=== PATIENT | female | born 1930 | race Caucasian/White ===

== ENCOUNTER 2016-02-28 14:19 | Emergency (ER) | payer OTHER ==
[~2016-02-28] VITALS: Ht 160 cm; Wt 81.7 kg
--- NOTE | ~2016-02-28 | 24HR ---
[facility] [place] [address] 24 HR ELECTROCARDIOGRAM REPORT Name: FLO MAGANA Room #: [facility] [id number] Admission: 02/28/16 Attend Phys: Discharge: 02/28/16 Date of : 32 Date of Service: 03/04/16 0944 Report #: [id number] THIS REPORT FOR: //name// [facility] Test Date: 2016-03-04 Test Time: 09:44:43 Pat Name: FLO MAGANA Department: Room: Gender: Manager Progressive Care: : 1930 Requested By: Sloan Gamble Order Number: [id number] Reading MD: Geremias Velez Interpretive Statements 1. Study duration was 48hours and technical quality acceptable 2. Predominant rhythm sinus, average heart rate 64bpm, range 51-98bpm. Longest RR interval 2.3seconds 2. No heart block. No atrial fibrillation or atrial flutter. 3. Moderately frequent atrial premature complexes. Several brief 4-7 beat salvos of atrial tachycardia, fastest 140bpm. Supraventricular ectopy represented 2.8% of QRS complexes. 4. Occasional, isolated premature ventricular complexes. No ventricular tachycardia 5. No symptoms reported during study. Electronically Signed On 03-06-2016 9:00:27 [employer] by Geremias Velez [email or web address] <ELECTRONICALLY SIGNED> By: Geremias Velez MD, [facility] 03/06/16899 3 3 Geremias Velez MD, [facility] /EPI
--- NOTE | ~2016-02-28 | EKG ---
[address] [address] ELECTROCARDIOGRAM REPORT Name: FLO MAGANA [facility]: [facility] [id number] Admission: 02/28/16 Attend Phys: Discharge: 02/28/16 Date of : 32 Report #: [id number] THIS REPORT FOR: //name// [facility] ED Test Date: 2016-02-28 Test Time: 14:37:52 Pat Name: FLO MAGANA Department: Room: Gender: F Personnel Monitor: makeda : 1930 Requested By: Robert Khalil Order Number: [id number] MD: Steven Gonzales Measurements Intervals [place] Rate: 70 P: 46 [place]: 160 QRS: -27 QRSD: 99 T: 4 QT: 426 QTc: 460 Interpretive Statements Sinus rhythm Borderline left axis deviation RSR' in V1 or V2, probably normal variant No previous ECG available for comparison Electronically Signed On 02-28-2016 16:52:45 [employer] by Steven Gonzales [email or web address] <ELECTRONICALLY SIGNED> By: Steven Gonzales MD 02/28/16 1652 36 36 Steven Gonzales MD /ETHEL
[~2016-02-28 14:19] MED LIST: ALPRAZOLAM 0.50.5 M1 PO; ASPIRIN EC81 M1 PO; ATORVASTATIN CA20 MG PO; ATORVASTATIN CA40 MG PO; AUGMENTIN 875875 M1 PO; CARVEDILOL6.25 MG PO; CELEXA40 MG PO; CLOTRIMAZOLE-BE15 GM TOP; DEEP SEA NASAL44 M1 NASAL; DOXYCYCLINE 10100 M1 PO; EFFEXOR XR75 MG PO; ENOXAPARIN30 MG/0.1 SUBQ; JUICE PLUS PO; KEFLEX500 MG PO; LOSARTAN POTAS100 MG PO; MAGNESIUM400 MG PO; MEGA D3 PO; MEGA RED PO; MIRALAX17 GM PO; MOBIC15 MG PO; MULTIVITAMINS PO; NOVOLOG100 UNIT/1; OMEPRAZOLE 20 M20 MG PO; PRESERVISION T1 EACH; PRESERVISION T1 EACH PO; SALINE NASAL SPRAY; SEROQUEL 25 MG25 M1 PO; SUPER B COMPLE1 EAC2 PO; SYNTHROID100 MCG PO; TRAMADOL 50 MG50 MG PO; TYLENOL EX-STR500 M2 PO; TYLENOL W/CODEI1 TA2 PO; VITAMIN D3400 UNIT PO; VITAMIN D35000 UNI1 PO
[2016-02-28 14:40] LABS: ABSOLUTE NEUTROPHILS 7.5 thou/uL (1.4-8.2); BASOPHILS 1.1 % (0.0-2.0); EOSINOPHILS 1.7 % (0.0-3.0); HEMATOCRIT 37.4 % (37.0-47.0); HEMOGLOBIN 12.7 gm/dL (12.0-15.0); LYMPHOCYTES 16.6 % (24.0-44.0); MCH 31.6 pg (26.0-34.0); MCHC 33.9 % (28.0-37.0); MCV 93.1 fL (80.0-100.0); MONOCYTES 8.6 % (1.0-8.0); PLATELET COUNT 224 thou/uL (150-400); RBC 4.02 mil/uL (4.20-5.00); RDW 12.5 % (10.5-14.5); WBC 10.4 thou/uL (4.0-11.0)
[2016-02-28 14:44] LABS: MANUAL DIFF NO
[2016-02-28 14:50] LABS: ANION GAP 14 mmol/L (7-16); BUN 31 mg/dL (7-18); CALCIUM 9.2 mg/dL (8.5-10.1); CHLORIDE 108 mmol/L (98-107); CO2 24 mmol/L (21-32); CREATININE 1.5 mg/dL (0.6-1.3); GLUCOSE 151 mg/dL (70-99); POTASSIUM 4.3 mmol/L (3.5-5.1); SODIUM 146 mmol/L (136-145)
[2016-02-28 14:58] LABS: ALBUMIN 3.3 g/dL (3.4-5.0); ALKALINE PHOSPHATASE 74 U/L (46-116); MAGNESIUM 1.8 mg/dL (1.8-2.4); SGOT 20 U/L (15-37); SGPT 30 U/L (30-65); TOTAL BILIRUBIN 0.5 mg/dL (<0.1-1.0); TOTAL PROTEIN 6.9 g/dL (6.4-8.2); TROPONIN-I < 0.04 ng/mL (<0.04-0.07)
== END 2016-02-28 16:28 | disposition home or self-care (01) ==
LOC: ER 14:19
PROVIDERS: Emergency Medicine
DX: R00.2 Palpitations (principal); I10 Essential (primary) hypertension; E11.9 Type 2 diabetes mellitus without complications; K21.9 Gastro-esophageal reflux disease without esophagitis; Z88.1 Allergy status to other antibiotic agents; Z91.040 Latex allergy status; F10.99 Alcohol use, unspecified with unspecified alcohol-induced disorder

== ENCOUNTER → 2016-06-19 | Outpatient (CLI) | payer OTHER | END | disposition home or self-care (01) | LOC: RAD 08:42 | DX: M25.551 Pain in right hip (principal) ==